=== PATIENT | female | born 1985 | race Caucasian/White ===

== ENCOUNTER 2017-12-02 08:00 | Outpatient (CLI) | payer OTHER ==
[2017-12-03 12:38] LABS: BASOPHILS % (AUTO) 0.5 %; EOSINOPHILS # (AUTO) 0.1 10^3/uL (0.0-0.7); EOSINOPHILS % (AUTO) 1.5 %; HGB - HEMOGLOBIN 14.6 g/dL (12.0-16.0); LYMPHOCYTES # (AUTO) 1.9 10^3/uL (1.5-3.5); LYMPHOCYTES % (AUTO) 28.5 %; MEAN CORPUSCULAR HGB CONC 33.9 g/dL (32.0-36.0); MEAN CORPUSCULAR VOLUME 91.4 fL (81.0-99.0); MEAN PLATELET VOLUME 9.8 fL (7.9-10.8); MONOCYTES # (AUTO) 0.3 10^3/uL (0.0-1.0); MONOCYTES % (AUTO) 3.9 %; NEUTROPHILS # (AUTO) 4.3 10^3/uL (1.5-6.6); NEUTROPHILS % (AUTO) 65.6 %; PLT - PLATELET COUNT 178 10^3/uL (130-450); RED CELL DISTRIBUTION WIDTH 12.8 % (12.0-15.0); WHITE BLOOD COUNT 6.5 x10^3/uL (4.8-10.8)
[2017-12-03 13:02] LABS: CALCIUM 8.9 mg/dL (8.5-10.3); CREATININE 0.7 mg/dL (0.4-1.0)
[2017-12-03 13:09] LABS: THYROID STIMULATING HORMONE 3.22 uIU/mL (0.34-5.60)
[2017-12-03 13:11] LABS: FREE T4 (FREE THYROXINE) 0.78 ng/dL (0.58-1.64)
[2017-12-04 11:46] LABS: HIV AG/AB 4TH GEN NON-REACTIVE (NON-REACTIVE)
[2017-12-04 14:16] LABS: HEPATITIS C ANTIBODY NON-REACTIVE (NON-REACTIVE)
== END 2017-12-02 23:59 | disposition home or self-care (01) ==
LOC: LAB.F 08:00
PROVIDERS: ATTEND Family Medicine
DX: R20.2 Paresthesia of skin (principal); R53.83 Other fatigue; Z20.2 Contact with and (suspected) exposure to infections with a predominantly sexual mode of transmission
CPT/HCPCS: 36415; 80048; 81599; 84439; 84443; 84481; 85025; 86592; 86664; 86665; 86695; 86696; 86803; 87389; 87491; 87591

== ENCOUNTER 2017-12-13 11:21 | Outpatient (CLI) | payer OTHER | END 2017-12-13 11:22 | disposition home or self-care (01) | LOC: LAB.F 11:21 | PROVIDERS: ATTEND Physician Assistant Medical | DX: R76.0 Raised antibody titer (principal); R53.83 Other fatigue | CPT/HCPCS: 36415; 81599; 86663 ==

== ENCOUNTER 2018-01-25 15:16 | Outpatient (CLI) | payer MEDICARE ==
[2018-01-25 18:27] LABS: ALBUMIN 4.3 g/dL (3.2-5.5); ALBUMIN/GLOBULIN RATIO 1.3 (1.0-2.2); ALKALINE PHOSPHATASE 51 IU/L (42-121); ALT ALANINE AMINOTRANSFERASE 14 IU/L (10-60); AST ASPARTATE AMINOTRANSFERASE 19 IU/L (10-42); BILIRUBIN,TOTAL 0.6 mg/dL (0.2-1.0); BUN - BLOOD UREA NITROGEN 10 mg/dL (6-20); CARBON DIOXIDE - CO2 26 mmol/L (21-32); CHLORIDE 104 mmol/L (101-111); CREATININE 0.7 mg/dL (0.4-1.0); GFR - MDRD 96 (>89); GLUCOSE 92 mg/dL (70-100); SODIUM 136 mmol/L (135-145); TOTAL PROTEIN 7.6 g/dL (6.7-8.2)
[2018-01-25 18:31] LABS: BASOPHILS % (AUTO) 0.8 %; EOSINOPHILS # (AUTO) 0.1 10^3/uL (0.0-0.7); EOSINOPHILS % (AUTO) 1.3 %; HGB - HEMOGLOBIN 14.1 g/dL (12.0-16.0); LYMPHOCYTES # (AUTO) 1.4 10^3/uL (1.5-3.5); LYMPHOCYTES % (AUTO) 26.2 %; MEAN CORPUSCULAR HEMOGLOBIN 30.4 pg (27.0-31.0); MEAN CORPUSCULAR HGB CONC 33.7 g/dL (32.0-36.0); MEAN CORPUSCULAR VOLUME 90.2 fL (81.0-99.0); MEAN PLATELET VOLUME 9.7 fL (7.9-10.8); MONOCYTES # (AUTO) 0.2 10^3/uL (0.0-1.0); MONOCYTES % (AUTO) 4.1 %; NEUTROPHILS # (AUTO) 3.6 10^3/uL (1.5-6.6); NEUTROPHILS % (AUTO) 67.6 %; PLT - PLATELET COUNT 223 10^3/uL (130-450); RED BLOOD COUNT 4.63 10^6/uL (4.20-5.40); RED CELL DISTRIBUTION WIDTH 12.8 % (12.0-15.0); WHITE BLOOD COUNT 5.3 x10^3/uL (4.8-10.8)
== END 2018-01-25 15:17 | disposition home or self-care (01) ==
LOC: LAB.F 15:16
PROVIDERS: ATTEND Internal Medicine
DX: R20.2 Paresthesia of skin (principal); R53.83 Other fatigue
CPT/HCPCS: 36415; 80053; 84443; 85025; 85651

== ENCOUNTER 2018-04-27 08:10 | Outpatient (CLI) | payer MEDICARE | END 2018-04-27 08:11 | disposition home or self-care (01) | LOC: LAB.F 08:10 | PROVIDERS: ATTEND Internal Medicine | DX: Z71.1 Person with feared health complaint in whom no diagnosis is made (principal) | CPT/HCPCS: 36415; 82533; 83516 ==

== ENCOUNTER 2018-07-04 08:00 | Outpatient (CLI) | payer MEDICARE ==
[2018-07-04 14:40] LABS: THYROID STIMULATING HORMONE 2.65 uIU/mL (0.34-5.60)
[2018-07-04 14:42] LABS: FREE T4 (FREE THYROXINE) 0.72 ng/dL (0.58-1.64)
[2018-07-06 12:03] LABS: THYROGLOBULIN 15.3 ng/mL
== END 2018-07-04 08:01 | disposition home or self-care (01) ==
LOC: LAB.F 08:00
PROVIDERS: ATTEND Physician Assistant Medical
DX: F41.8 Other specified anxiety disorders (principal); R53.83 Other fatigue
CPT/HCPCS: 36415; 84432; 84439; 84443; 84481; 86800

== ENCOUNTER 2018-08-23 08:00 | Outpatient (CLI) | payer MEDICARE | END 2018-08-23 23:59 | disposition home or self-care (01) | LOC: LAB.R 08:00 | PROVIDERS: ATTEND Registered Nurse | DX: Z20.2 Contact with and (suspected) exposure to infections with a predominantly sexual mode of transmission (principal) | CPT/HCPCS: 87070 ==

== ENCOUNTER 2018-08-23 13:16 | Outpatient (CLI) | payer MEDICARE ==
[2018-08-23 18:20] LABS: FOLLICLE STIMULATING HORMONE 8.55 mIU/mL; LUTEINIZING HORMONE 5.38 mIU/mL
[2018-08-24 07:16] LABS: PROGESTERONE 0.5 ng/mL
== END 2018-08-23 13:17 | disposition home or self-care (01) ==
LOC: LAB.F 13:16
PROVIDERS: ATTEND Registered Nurse
DX: N94.89 Other specified conditions associated with female genital organs and menstrual cycle (principal)
CPT/HCPCS: 36415; 82627; 82670; 83001; 83002; 84143; 84144; 84270; 84402; 84403

== ENCOUNTER 2018-08-25 20:58 | Outpatient (CLI) | payer MEDICARE ==
--- NOTE | 2018-08-26 01:25 | Ultrasound Report ---
Reason: PELVIC AND PERINEAL PAIN Procedure Date: 08/25/2018 Accession Number: [id number] / [id number] Procedure: US - Pelvic w/Transvaginal CPT Code: FULL RESULT: EXAM: PELVIC ULTRASOUND EXAM DATE: 08/25/2018 10:10 PM. CLINICAL HISTORY: Pelvic and perineal pain. COMPARISON: None. TECHNIQUE: Real-time transabdominal pelvic scan performed to identify the uterus and adnexa and as an overview of other pelvic structures, followed by transvaginal scan to provide greater detail of the uterus and adnexa, with static image documentation. FINDINGS: Uterus: 7.0 x 3.3 x 4.8 cm, volume 57.9 cc. Anteverted position. Normal overall size and echotexture. Masses: None. Endometrium: 4 mm. Normal. Cervix: Unremarkable. Right Ovary: 3.5 x 1.7 x 2.3 cm, volume 7.1 cc. Normal echotexture and blood flow. Left Ovary: 3.5 x 1.9 x 2.4 cm, volume 8.3 cc. Normal echotexture and blood flow. Free Fluid: Trace. Other: None. IMPRESSION: Normal pelvic ultrasound. RADIA
== END 2018-08-25 20:59 | disposition home or self-care (01) ==
LOC: DI 20:58
PROVIDERS: ATTEND Registered Nurse
DX: R10.2 Pelvic and perineal pain (principal)
CPT/HCPCS: 76830; 76856

== ENCOUNTER 2018-10-10 19:16 | Outpatient (CLI) | payer MEDICARE | END 2018-10-10 19:17 | disposition EMS.NT | LOC: EMS 19:16 | PROVIDERS: ATTEND Surgery | DX: R41.82 Altered mental status, unspecified (principal) ==

== ENCOUNTER 2018-10-24 18:28 | Emergency (ER) | payer MEDICARE ==
[2018-10-24 19:30] LABS: BASOPHILS % (AUTO) 0.7 %; EOSINOPHILS # (AUTO) 0.1 10^3/uL (0.0-0.7); EOSINOPHILS % (AUTO) 1.6 %; HGB - HEMOGLOBIN 13.1 g/dL (12.0-16.0); LYMPHOCYTES # (AUTO) 1.6 10^3/uL (1.5-3.5); LYMPHOCYTES % (AUTO) 30.5 %; MEAN CORPUSCULAR HGB CONC 34.3 g/dL (32.0-36.0); MEAN CORPUSCULAR VOLUME 90.4 fL (81.0-99.0); MEAN PLATELET VOLUME 8.6 fL (7.9-10.8); MONOCYTES # (AUTO) 0.2 10^3/uL (0.0-1.0); MONOCYTES % (AUTO) 4.5 %; NEUTROPHILS # (AUTO) 3.4 10^3/uL (1.5-6.6); NEUTROPHILS % (AUTO) 62.7 %; PLT - PLATELET COUNT 206 10^3/uL (130-450); RED BLOOD COUNT 4.24 10^6/uL (4.20-5.40); RED CELL DISTRIBUTION WIDTH 12.3 % (12.0-15.0); WHITE BLOOD COUNT 5.4 x10^3/uL (4.8-10.8)
[2018-10-24 19:34] LABS: ACETAMINOPHEN < 10 ug/mL (10-30); ALBUMIN/GLOBULIN RATIO 1.4 (1.0-2.2); ALKALINE PHOSPHATASE 59 IU/L (42-121); ALT ALANINE AMINOTRANSFERASE 14 IU/L (10-60); AST ASPARTATE AMINOTRANSFERASE 22 IU/L (10-42); BUN - BLOOD UREA NITROGEN 11 mg/dL (6-20); CALCIUM 8.7 mg/dL (8.5-10.3); CARBON DIOXIDE - CO2 23 mmol/L (21-32); CHLORIDE 104 mmol/L (101-111); CREATININE 0.8 mg/dL (0.4-1.0); GFR - MDRD 82 (>89); GLUCOSE 118 mg/dL (70-100); LIPASE 42 U/L (22-51); SALICYLATE < 6.0 mg/dL; SODIUM 135 mmol/L (135-145); TOTAL PROTEIN 6.8 g/dL (6.7-8.2)
[2018-10-24 19:46] LABS: LITHIUM < 0.05 mmol/L
[2018-10-24 21:14] LABS: MUDS CUTOFF CONCENTRATIONS CUTOFF CONC BELOW:
[2018-10-24 21:19] LABS: BILIRUBIN,URINE NEGATIVE (NEGATIVE); GLUCOSE, URINE (UA) NEGATIVE (NEGATIVE); KETONES,URINE (UA) NEGATIVE (NEGATIVE); LEUKOCYTE ESTERASE, URINE NEGATIVE (NEGATIVE); NITRITE,URINE NEGATIVE (NEGATIVE); OCCULT BLOOD,URINE NEGATIVE (NEGATIVE); PROTEIN,URINE NEGATIVE (NEGATIVE); UROBILINOGEN,URINE 0.2 (NORMAL) E.U./dL (NORMAL)
[2018-10-24 21:23] LABS: CLARITY,URINE CLEAR (CLEAR); HCG UR QUAL NEGATIVE
[2018-10-24 21:31] LABS: AMPHETAMINE SCREEN,URINE NEGATIVE (NEGATIVE); BENZODIAZEPINES SCREEN, URINE NEGATIVE (NEGATIVE); COCAINE SCREEN URINE NEGATIVE (NEGATIVE); METHADONE SCREEN, URINE NEGATIVE (NEGATIVE); METHAMPHETAMINES SCREEN, URINE NEGATIVE (NEGATIVE); OPIATE SCREEN, URINE NEGATIVE (NEGATIVE); OXYCODONE SCREEN, URINE NEGATIVE (NEGATIVE); PROPOXYPHENE SCREEN, URINE NEGATIVE (NEGATIVE); TRICYCLIC ANTIDEPRESSANT,URINE NEGATIVE (NEGATIVE)
--- NOTE | 2018-10-24 22:30 | ED Physician Documentation ---
PD HPI MHE - Stated complaint Stated Complaint: DEPRESSION - Chief complaint Chief Complaint: MHE - History obtained from History obtained from: Patient - History of Present Illness Primary symptom: Suicidal ideation, Depression Timing - onset: How many months ago (6) Recently seen: Not recently seen - Additional information Additional information: c/o 6 months of gradually worsening depression with increasingly frequent suicidal thoughts; has been thinking of cutting herself. she had stopped taking her lithium until one month ago, but has been taking small doses (per patient) because she gets tremulous with the prescribed dose. Review of Systems Cardiac: reports: Reviewed and negative Respiratory: reports: Reviewed and negative GI: reports: Reviewed and negative Neurologic: reports: Reviewed and negative Psychiatric: reports: Depressed, Suicidal, Anxiety. denies: Homicidal, Hallucinations, Delusions PD PAST MEDICAL HISTORY - Past Medical History Past Medical History: No Cardiovascular: None Respiratory: None Neuro: None Endocrine/Autoimmune: HyPOthyroidism GI: GERD : None HEENT: None Psych: Depression, Anxiety, Bipolar disorder, Other Musculoskeletal: None Derm: None Other Past Medical History: schizoeffective - Past Surgical History Past Surgical History: No - Present Medications Home Medications: Ambulatory Orders Medication Instructions Recorded Confirmed Alprazolam [Xanax] 0 mg 10/24/18 [place] 150 mg DAILY 10/24/18 10/24/18 - Allergies Allergies/Adverse Reactions: Allergies Allergy/AdvReac Type Severity Reaction Status Date / Time No Known Drug Allergies Allergy Verified 10/24/18 18:42 - Social History Does the pt smoke?: No Smoking Status: Never smoker Does the pt drink ETOH?: Yes Does the pt have substance abuse?: Yes Substance Use and Type: Marijuana - Immunizations Immunizations are current?: No Immunizations: TDAP >10years/unknown - POLST Patient has POLST: No PD ED PE NORMAL - Vitals Vital signs reviewed: Yes - General General: Alert and oriented X 3, No acute distress, Well developed/nourished, Other (exhibits some difficulty in focusing and providing concise answers) - HEENT HEENT: PERRL, EOMI, Moist mucous membranes - Cardiac Cardiac: RRR, No murmur - Respiratory Respiratory: No respiratory distress, Clear bilaterally - Abdomen Abdomen: Soft, Non tender - Derm Derm: Normal color, Warm and dry - Neuro Neuro: Alert and oriented X 3, director internal control 2-12 intact, No motor deficit, No sensory deficit, Normal speech PD ED PE EXPANDED - Psych Psych: Poor eye contact Results - Vitals Vitals: Vital Signs - 24 hr 10/24/18 10/24/18 10/25/18 18:34 23:50 00:17 Temperature 36.6 C 36.7 C Heart Rate 69 65 57 L Respiratory 16 16 20 Rate Blood Pressure 99/60 94/68 101/69 O2 Saturation 99 97 99 10/25/18 05:59 Temperature 36.0 C L Heart Rate 55 L Respiratory 15 Rate Blood Pressure 92/53 L O2 Saturation 99 Oxygen O2 Source Room air - Labs Labs: Laboratory Tests 10/24/18 10/24/18 10/24/18 19:10 19:10 19:10 WBC 5.4 RBC 4.24 Hgb 13.1 Hct 38.4 MCV 90.4 MCH 31.0 MCHC 34.3 RDW 12.3 Plt Count 206 MPV 8.6 Neut # (Auto) 3.4 Lymph # (Auto) 1.6 [place] # (Auto) 0.2 Eos # (Auto) 0.1 Baso # (Auto) 0.0 Absolute Nucleated RBC 0.00 Nucleated RBC % 0.1 Sodium 135 Potassium 3.4 L Chloride 104 Carbon Dioxide 23 Anion Gap 8.0 BUN 11 Creatinine 0.8 Estimated GFR (MDRD) 82 L Glucose 118 H Calcium 8.7 Total Bilirubin 1.0 AST 22 ALT 14 Alkaline Phosphatase 59 Total Protein 6.8 Albumin 4.0 Globulin 2.8 Albumin/Globulin Ratio 1.4 Lipase 42 TSH Urine Color Urine Clarity Urine pH Ur Specific [place] Urine Protein Urine Glucose (UA) Urine Ketones Urine Occult Blood Urine Nitrite Urine Bilirubin Urine Urobilinogen Ur Leukocyte Esterase Ur Microscopic Review Urine Culture Comments Urine HCG, Qual Last Dose Date UNKNOWN Last Dose Time UNKNOWN Salicylates < 6.0 Urine Opiates Screen Ur Oxycodone Screen Urine Methadone Screen Ur Propoxyphene Screen Acetaminophen < 10 L Ur Barbiturates Screen Ur Tricyclics Screen Ur Phencyclidine Scrn Ur Amphetamine Screen U Methamphetamines Scrn U Benzodiazepines Scrn [place] < 0.05 Urine Cocaine Screen U Cannabinoids Screen Ethyl Alcohol < 5.0 10/24/18 10/24/18 10/25/18 21:09 21:09 05:55 WBC RBC Hgb Hct MCV MCH MCHC RDW Plt Count MPV Neut # (Auto) Lymph # (Auto) [place] # (Auto) Eos # (Auto) Baso # (Auto) Absolute Nucleated RBC Nucleated RBC % Sodium Potassium Chloride Carbon Dioxide Anion Gap BUN Creatinine Estimated GFR (MDRD) Glucose Calcium Total Bilirubin AST ALT Alkaline Phosphatase Total Protein Albumin Globulin Albumin/Globulin Ratio Lipase TSH 5.02 Urine Color YELLOW Urine Clarity CLEAR Urine pH 6.0 Ur Specific [place] 1.020 Urine Protein NEGATIVE Urine Glucose (UA) NEGATIVE Urine Ketones NEGATIVE Urine Occult Blood NEGATIVE Urine Nitrite NEGATIVE Urine Bilirubin NEGATIVE Urine Urobilinogen 0.2 (NORMAL) Ur Leukocyte Esterase NEGATIVE Ur Microscopic Review NOT INDICATED Urine Culture Comments NOT INDICATED Urine HCG, Qual NEGATIVE Last Dose Date Last Dose Time Salicylates Urine Opiates Screen NEGATIVE Ur Oxycodone Screen NEGATIVE Urine Methadone Screen NEGATIVE Ur Propoxyphene Screen NEGATIVE Acetaminophen Ur Barbiturates Screen NEGATIVE Ur Tricyclics Screen NEGATIVE Ur Phencyclidine Scrn NEGATIVE Ur Amphetamine Screen NEGATIVE U Methamphetamines Scrn NEGATIVE U Benzodiazepines Scrn NEGATIVE [place] Urine Cocaine Screen NEGATIVE U Cannabinoids Screen NEGATIVE Ethyl Alcohol PD MEDICAL DECISION MAKING - ED course Complexity details: reviewed results, re-evaluated patient, considered differential, d/w patient ED course: Telepsych consult obtained and recommendation is hospitalization; patient is agreeable to this. Case signed out to oncoming ED physician at end of my shift pending placement (signed out to Dr. Arredondo) Departure - Departure Clinical Impression: Suicidal ideation Depression Qualifiers: Depression Type: unspecified Qualified Code(s): F32.9 - Major depressive disorder, single episode, unspecified Condition: Stable
--- NOTE | 2018-10-25 01:25 | TELEPSYCH PHYS NOTE ---
Telepsych Note - CHIEF COMPLAINT/HX OF PRESENT ILLNESS Cheif Complaint and History of Present Illness: Chief Complaint: SI with plan History of Present Illness: Pt seen via televideo with the help of onsite staff. Pt is a 33 yo female who reports a hx of Bipolar Disorder. Of note, states in the past she has also been diagnosed with Schizoaffective Disorder Bipolar Type. Pt presented to the ED, self-referred due to worsening depressive sxs inclusive of pervasive depressed mood, increased sleep, decreased concentration, and delayed thought processes. She also notes feeling helpless and experiencing suicidal thoughts. She states she has a long hx of suicidal thoughts. States they have been intermittent in the past. Over the past 1-2 weeks more constant. She does admit that she has been contemplating various methods of killing herself. States she was thinking of methods that no one else would get hurt. States she also thought of travelling overseas and doing it there. States over the past few days she has thought of using a knife. She has been thinking about her knives and testing the sharpness to see if it was feasible. States earlier yesterday she took out a knife and held it to herself. States this scared her and prompted her to seek help. Pt does reports a prior hx of attempt. Of note, pt reports she has been off medications for a while however due to her worsening restarted an old Rx of lithium a few weeks prior. However per ED, pts lithium level was undetectable. Cites stressors inclusive of a recent breakup 3 weeks prior, family and other support system live far away from her. States her ex-partner was her primary emotional support and now thats gone. On ROS, pt reports AHs, non-command. Denies VHs, delusions nor HI. She notes ongoing SI, has been contemplating methods and earlier yesterday checked the sharpness and put a knife to herself. Pt presents as a danger to herself requiring acute inpt psychiatric admission for safety, stabilization and treatment. Pt is voluntary for inpt treatment. INPT: 3 prior admissions Outpt: non compliant SI/Attempts: prior ideation, attempt. 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 Stressors: see HPI Strengths/supports: none identified. - SI/HI/SELF HARM SI/HI/SELF HARM (CURRENT OR HISTORY OF):: SI SI/HI/Self Harm Text (Current or History of):: Prior hx of suicidal ideation and attempt. - VIOLENCE/LEGAL/COLLATERAL Violence - Legal - Collateral: none reported - PSYCHIATRIC HX/TREATMENT HX Psychiatric: Depression, Anxiety, Bipolar disorder, Other - DRUG/ALCOHOL HX Substance Use and Type: Marijuana - MEDICAL HX Does the pt have a hx of MRSA?: No Neurological History: None Eyes, Ears, Nose, Throat: None Cardiovascular: None Respiratory: None Skin: None Endocrine/Autoimmune: HyPOthyroidism Gastrointestinal: GERD Is Patient ?: No Urinary: None Musculoskeletal: None Blood Disorders: None PMH Other: schizoeffective - HOME MEDICATIONS Home Meds (as last confirmed): Patient History Medication Instructions Recorded Confirmed Alprazolam [Xanax] 0 mg 10/24/18 [place] 150 mg DAILY 10/24/18 10/24/18 - ALLERGIES Allergies (as last confirmed): Allergies Allergy/AdvReac Type Severity Reaction Status Date / Time No Known Drug Allergies Allergy Verified 10/24/18 18:42 - FAMILY PSYCH/SUICIDE/SOCIAL HX-MENTAL Family - Suicide - Social Hx and Mental Status Exam: none reported - TREATMENT/PHARMACOLOGICAL RECOMMENDATION Treatment - Pharmacological - Therapy Recommendations: Diagnosis: Bipolar I Disorder, MRE Depressed. Assessment: Pt is a 33 yo female with Bipolar Disorder. Presenting with a several week period of worsening depressive sxs including suicidality. Pt presents as a danger to herself requiring acute inpt psychiatric admission for safety, stabilization and treatment. Pt is voluntary for inpt treatment. Recommendations: Pt requires acute inpt psychiatric admission For safety, stabilization and treatment Pt is voluntary for inpt treatment. Increase [place] to 300mg po BID REcheck lithium level in 2-3 days - TIME SPENT & PROVIDER LOCATION Telepsych consultation conducted via videoconferencing: Yes List names and roles of persons who participated in consult: Nona Small (pt) Joe (psychiatrist) Telepsych [place] Time Telepsych consult began: 03:50 Time Telepsych consult completed: 04:05
--- NOTE | 2018-10-25 15:07 | ED Physician Documentation ---
ED Addendum - Addendum Addendum: 10/25/18 15:07 Patient was seen by the [facility] Dominga Vasquez who made an appointment with the patient's PCP tomorrow for medication adjustment. Patient contracts for safety at this point. Patient is comfortable going home and will return if she worsens. This document was made in part using voice recognition software. While efforts are made to proofread this document, sound alike and grammatical errors may occur. Departure - Departure Disposition: 01 Home, Self Care Clinical Impression: Suicidal ideation Depression Qualifiers: Depression Type: unspecified Qualified Code(s): F32.9 - Major depressive disorder, single episode, unspecified Condition: Stable Instructions: ED Depression Follow-Up: Kaylee Gomez PA-C [Provider Admit Priv/Credential] - Tomorrow Comments: Follow up with SOREN Gomez tomorrow as scheduled. Return if you worsen. Crisis Line and is available to talk to someone [email or web address] is also available to chat with someone online if you prefer. There are also many resources on this website and apps for your phone to help with your mental health You can also text the word START to [phone] to chat with someome via text.
[2018-10-25 15:17] VITALS: BP 99/46
== END 2018-10-25 15:24 | disposition home or self-care (01) ==
LOC: ED 18:28
DX: R45.851 Suicidal ideations (principal); F25.0 Schizoaffective disorder, bipolar type; E03.9 Hypothyroidism, unspecified
CPT/HCPCS: 36415; 80053; 80178; 81003; 81025; 83690; 84443; 85025; 99284; Q3014; 80306; 80307; 80320; 80329; 81001; 87086

== ENCOUNTER 2019-01-19 17:20 | Emergency (ER) | payer MEDICARE ==
--- NOTE | 2019-01-19 17:51 | ED Physician Documentation ---
PD HPI CHEST PAIN - Stated complaint Stated Complaint: CHEST PAIN - Chief complaint Chief Complaint: Cardiac - History obtained from History obtained from: Patient - History of Present Illness Timing - onset: Other (For the last 4 months or so she has had substernal chest pressure that lasts for minutes to hours at a time when she is sad. She is not short of breath or nauseous with it. She did doubts possibility of . She denies pedal edema or calf pain. No recent travel.) Review of Systems Ten Systems: 10 systems reviewed and negative Constitutional: denies: Fever, Chills Cardiac: reports: Chest pain / pressure Respiratory: denies: Dyspnea, Cough GI: denies: Abdominal Pain, Nausea, Vomiting PD PAST MEDICAL HISTORY - Past Medical History Cardiovascular: None Respiratory: None Neuro: None Endocrine/Autoimmune: HyPOthyroidism GI: GERD : None HEENT: None Psych: Depression, Anxiety, Bipolar disorder, Other Musculoskeletal: None Derm: None - Past Surgical History Past Surgical History: No - Present Medications Home Medications: Ambulatory Orders Medication Instructions Recorded Confirmed Alprazolam [Xanax] 0 mg 10/24/18 [place] 150 mg DAILY 10/24/18 10/24/18 - Allergies Allergies/Adverse Reactions: Allergies Allergy/AdvReac Type Severity Reaction Status Date / Time Beef Containing Products Allergy Unknown Verified 01/19/19 17:25 gluten Allergy Unknown Verified 01/19/19 17:25 pork derived (porcine) Allergy Unknown Verified 01/19/19 17:25 - Social History Does the pt smoke?: No Smoking Status: Never smoker Does the pt drink ETOH?: Yes Does the pt have substance abuse?: Yes - Immunizations Immunizations are current?: No Immunizations: TDAP >10years/unknown - POLST Patient has POLST: No PD ED PE NORMAL - Vitals Vital signs reviewed: Yes - General General: Alert and oriented X 3, No acute distress - HEENT HEENT: PERRL, EOMI - Neck Neck: Supple, no meningeal sign, No bony TTP - Cardiac Cardiac: RRR, No murmur - Respiratory Respiratory: No respiratory distress, Clear bilaterally - Abdomen Abdomen: Non tender - Derm Derm: Normal color, Warm and dry - Extremities Extremities: No edema, No calf tenderness / cord - Neuro Neuro: Alert and oriented X 3, Normal speech Results - Vitals Vitals: Vital Signs - 24 hr 01/19/19 17:23 Temperature 36.4 C L Heart Rate 65 Respiratory 14 Rate Blood Pressure 108/58 L O2 Saturation 100 Oxygen O2 Source Room air - EKG (time done) 1729 Rate: Rate (enter#) (70) Rhythm: NSR [place]: Normal Intervals: Normal [place] QRS: Normal Ischemia: Normal ST segments Computer interpretation: Agree with computer PD MEDICAL DECISION MAKING - ED course ED course: This is a 33-year-old woman with months worth of intermittent ongoing chest pain related to depression. I recommended a workup including at least a troponin and chest x-ray. She is PERC negative. She declined any further workup after discussion. Departure - Departure Disposition: Home, Self Care Clinical Impression: Chest pain Qualifiers: Chest pain type: unspecified Qualified Code(s): R07.9 - Chest pain, unspecified Depression Qualifiers: Depression Type: unspecified Qualified Code(s): F32.9 - Major depressive disorder, single episode, unspecified Condition: Good Record reviewed to determine appropriate education?: Yes Instructions: ED Chest Pain NonCardiac Comments: Call your doctor to arrange a follow-up appointment, make the next available appointment. In the interim, return anytime if worse or if new symptoms develop.
[2019-01-19 18:31] VITALS: BP 102/55
== END 2019-01-19 18:18 | disposition home or self-care (01) ==
LOC: ED 17:20
DX: R07.9 Chest pain, unspecified (principal); F32.9 Major depressive disorder, single episode, unspecified; E03.9 Hypothyroidism, unspecified
CPT/HCPCS: 84484; 93005; 99283

== ENCOUNTER 2019-02-06 08:00 | Outpatient (CLI) | payer MEDICARE, MEDICAID | END 2019-02-06 23:59 | disposition home or self-care (01) | LOC: LAB.R 08:00 | PROVIDERS: ATTEND Registered Nurse | DX: N89.8 Other specified noninflammatory disorders of vagina (principal); R82.998 Other abnormal findings in urine | CPT/HCPCS: 87086; 87491; 87591 ==

== ENCOUNTER 2019-03-01 08:00 | Outpatient (CLI) | payer MEDICARE, MEDICAID ==
[2019-03-01 23:02] LABS: TRICHOMONAS VAGINALIS DNA NEGATIVE (NEGATIVE)
== END 2019-03-01 23:59 | disposition home or self-care (01) ==
LOC: LAB.R 08:00
PROVIDERS: ATTEND Registered Nurse
DX: R39.89 Other symptoms and signs involving the genitourinary system (principal)
CPT/HCPCS: 87070; 87077; 87491; 87591; 87661

== ENCOUNTER 2019-03-10 16:09 | Outpatient (CLI) | payer MEDICARE, MEDICAID | END 2019-03-10 16:10 | disposition home or self-care (01) | LOC: LAB 16:09 | PROVIDERS: ATTEND Obstetrics & Gynecology | DX: R53.83 Other fatigue (principal); M25.50 Pain in unspecified joint; A49.1 Streptococcal infection, unspecified site; Z20.9 Contact with and (suspected) exposure to unspecified communicable disease | CPT/HCPCS: 81599; 86617; 86618; 87040; 87640 ==